=== PATIENT | male | born 1985 | race American Indian/Alaskan Native ===

== ENCOUNTER 2018-01-12 10:25 | Emergency (ER) | payer SELFPAY ==
--- NOTE | 2018-01-12 12:17 | Emergency Department Report ---
ED Male HPI - General Chief complaint: Urogenital-Male Stated complaint: BURNING PENIS PAIN WHEN PEEING Time Seen by Provider: 01/12/18 12:09 Source: patient Mode of arrival: Ambulatory Limitations: No Limitations - History of Present Illness Initial comments: 32-year-old male presents with painful urination. No discharge. Patient is monogamous. He is . MD Complaint: dysuria -: Gradual, days(s) (1) Severity: mild Quality: burning - Related Data Previous Rx's Medication Instructions Recorded Last Taken Type Cephalexin [Keflex] 500 mg PO Q6HR 10 Days #40 capsule 01/12/18 Unknown Rx Allergies Allergy/AdvReac Type Severity Reaction Status Date / Time No Known Allergies Allergy Unverified 01/12/18 10:44 ED Review of Systems ROS: Stated complaint: BURNING PENIS PAIN WHEN PEEING Other details as noted in HPI Constitutional: denies: fever, malaise Cardiovascular: denies: chest pain Gastrointestinal: denies: abdominal pain, nausea, vomiting ED Past Medical Hx - Past Medical History Hx Hypertension: Yes - Surgical History Additional Surgical History: LEFT SHOULDER - Social History Smoking Status: Never Smoker Substance Use Type: Alcohol - Medications Home Medications: Home Medications Medication Instructions Recorded Confirmed Last Taken Type Cephalexin [Keflex] 500 mg PO Q6HR 10 Days #40 capsule 01/12/18 Unknown Rx ED Physical Exam - General Limitations: No Limitations General appearance: alert, in no apparent distress - Head Head exam: Present: atraumatic, normocephalic - Respiratory Respiratory exam: Present: respiratory distress - GI/Abdominal GI/Abdominal exam: Present: soft. Absent: distended, tenderness, guarding, rebound - Psychiatric Psychiatric exam: Present: normal affect, normal mood - Skin Skin exam: Present: warm, dry ED Course Vital Signs 01/12/18 10:44 Temperature 98.3 F Pulse Rate 96 H Respiratory 20 Rate Blood Pressure 153/94 O2 Sat by Pulse 96 Oximetry ED Medical Decision Making - Medical Decision Making Mr. Lawrence is a 32 yo male who presents with painful urination. No discharge. Will treat for UTI with Keflex. Critical care attestation.: If time is entered above; I have spent that time in minutes in the direct care of this critically ill patient, excluding procedure time. ED Disposition Clinical Impression: UTI (urinary tract infection) Disposition: TO HOME OR SELFCARE Is pt being admited?: No Does the pt Need Aspirin: No Condition: Stable Instructions: Urinary Tract Infection in Men (ED) Prescriptions: Cephalexin [Keflex] 500 mg PO Q6HR 10 Days #40 capsule Referrals: PRIMARY CARE, [Primary Care Provider] - 3-5 Days Time of Disposition: 12:17
[2018-01-12 12:26] VITALS: BP 136/76
== END 2018-01-12 12:23 | disposition home or self-care (01) ==
LOC: ED 10:25
DX: N39.0 Urinary tract infection, site not specified (principal); I10 Essential (primary) hypertension
CPT/HCPCS: 99282